=== PATIENT | female | born 1960 | race Caucasian/White ===

== ENCOUNTER 2017-03-25 12:48 | Inpatient (IN) | payer SELFPAY ==
--- NOTE | ~2017-03-25 | DS ---
Discharge Summary [id number] [place]. [address] NAME: ROSSY JOYA : 58 STATUS : DIS IN PAT#: [id number] AGE: 56 ADM/REG DATE : 03/25/17 MR#: [id number] REPORT SERV DATE: 03/30/17 DICTATED BY: LEENA ANTONIO DATE: 03/27/17 REPORT STATUS : Draft TRANSCRIBED BY: MODL DATE: 03/27/17 ADMISSION DATE: 03/25/2017 DISCHARGE DATE: 03/27/2017 PRINCIPAL DIAGNOSIS: Pneumonia of left lingula. SECONDARY DIAGNOSES: Systemic inflammatory response syndrome, pleurisy, tobacco abuse. HISTORY OF PRESENT ILLNESS: See Dr. Nolasco's dictation on 03/25/2017. HOSPITAL COURSE: The patient admitted with pneumonia and concern for sepsis due to fever and leukocytosis and elevated heart rate. However, elevated heart rate was mostly due to pain. The patient has significant pleuritic pain, but responded substantially to Toradol therapy. Her pneumonia severity index was actually found to be quite low. She responded to antibiotics and was actually able to be converted to oral Levaquin by 03/27/2017 and she was released home. She was on metered dose inhaler p.r.n. Mucinex and Lortab p.r.n. with instructions for ibuprofen as needed as. DICTATED BY: Guevara Cheng/ESTHER Leena Antonio M.D. / [id number] CC: Leena Antonio M.D.
--- NOTE | ~2017-03-25 | HP ---
History And Physical [id number] [place]. [address] NAME: ROSSY JOYA : 58 STATUS : ADM IN [facility]#: [id number] AGE: 56 ADM/REG DATE : 03/25/17 MR#: [id number] REPORT SERV DATE: 03/25/17 DICTATED BY: SULMA NOLASCO DATE: 03/25/17 REPORT STATUS : Draft TRANSCRIBED BY: MODL DATE: 03/25/17 DATE OF ADMISSION: 03/25/2017 CHIEF COMPLAINT: Cough, short of breath, not feeling well, painful chest pain. HISTORY OF PRESENT ILLNESS: Obtained from the patient as well as from the patient's family present at bedside and emergency room documents. Also, prior medical records available to us were thoroughly reviewed. According to the information available, the patient is a pleasant 56-year-old white woman with past medical history significant for prior admission for pneumonia several years ago, still smoking at this moment with no regular prescribed medications at home, presented to the emergency room for severe left-sided pleuritic chest pain as well as cough, shortness of breath, and chills. The patient stated the symptoms started gradually for several days, but worse of a day with significant shortness of breath, pain left-sided, radiating towards the left back across the chest with the chills, feeling feverish, but never documented temperature at home. She has some cough mostly nonproductive, but increasing the amount of pain and overall distress the patient had been experiencing. No URI like symptoms. No recent contact with sick persons. No recent travel outside of the area or contact with persons that travel outside of the area. In the emergency room, the patient was evaluated, was noticed to be in moderate distress due to her presentation of pain. Further investigation revealed left-sided infiltrate and a CTA of the chest confirmed left lingular infiltrate with elevated white cell count 20.2. The patient had met criteria for sepsis/severe sepsis as documented below. Because of the above presentation and findings and results of the initial investigation in the emergency room, the patient was referred to the Hospitalist Service for further management and evaluation. Please note, at this moment despite 2.5 L of IV fluids boluses given the patient still remains borderline hypotensive with the systolic blood pressure from 79 to 90 most of the time. Please note, the patient is not up to date with her pneumonia vaccine and/or influenza vaccine. No rashes. No weight loss or weight gain reported. No urinary symptoms. No palpitations. No edema. No PND or dyspnea on exertion reported. No hemoptysis. No night sweats or night fevers. PAST MEDICAL HISTORY: Significant for COPD/emphysema. Significant for prior episodes of pneumonia over six to seven years ago for which she required also hospitalization. PAST SURGICAL HISTORY: Significant for and appendectomy in 2011, emergent cholecystectomy in 2014. SOCIAL HISTORY: The patient lives with significant other for many years. She started smoking again half a pack of cigarettes daily, having 40-pack year smoking history. Denies significant alcohol abuse. She stated that she drinks beer most of the days. Denies illicit or recreational drug abuse. Unemployed. FAMILY HISTORY: Significant for hypertension and coronary artery disease. REVIEW OF SYSTEMS: Per H and P, otherwise negative in all review of systems. Please note, the comprehensive History And Physical [address] [address] NAME: ROSSY JOYA : 58 STATUS : ADM IN [facility]#: [id number] AGE: 56 ADM/REG DATE : 03/25/17 MR#: [id number] REPORT SERV DATE: 03/25/17 DICTATED BY: SULMA NOLASCO DATE: 03/25/17 REPORT STATUS : Draft TRANSCRIBED BY: ESTHER DATE: 03/25/17 review of system was obtained and pertinent positives were including in the H and P. ALLERGIES: REPORTED TO PENICILLIN AND BENADRYL WELL PSEUDOEPHEDRINE WOULD MAKE HER "JERKY." HOME MEDICATIONS: No regular prescribed home medications. The patient takes over-the- counter Aleve 440 mg p.o. daily for pain, last dose of taking several days ago. PHYSICAL EXAMINATION: GENERAL: Pleasant but pale, ill appearing, in moderate distress due to pain. VITAL SIGNS: Upon arrival to the emergency room, blood pressure 108/66, (note that her blood pressure had remained from 78 systolic up to 95 systolic occasionally up to 100 systolic), pulse 115, respiratory rate 22, temperature 98.4, oxygen saturation 97% in room air. HEENT: With pupils equal, round, and reactive to light. Extraocular movements intact. Throat, mild erythema. No exudate. No signs of tenderness. Atraumatic and normocephalic. NECK: Supple. No JVD. No bruit. No thyromegaly. No lymph nodes. LUNGS: Emphysematous confirmation, few scattered wheezes bilaterally and rhonchi in the left lung field. HEART: Positive S1, S2. Regular rate and rhythm. Tachycardic. Positive mitral regurgitation. Murmur at the apex. PMI not displaced by palpation of the left lateral chest wall. ABDOMEN: Positive bowel sounds. Soft, nontender. No guarding. No hepatosplenomegaly. EXTREMITIES: Decreased range of motion. Osteoarthritic changes. No clubbing. No cyanosis. No edema. No calf tenderness. +2 pulses. NEUROLOGIC: Alert and oriented x3. Grossly nonfocal. Cranial nerves II through XII grossly intact. Motor strength 5/5 symmetrical bilateral. Deep tendon reflexes 2/2 symmetrical bilateral. BACK: With decreased range of motion, but no focal localized tenderness. No CVA tenderness. SKIN: No bruises. No rashes. No lacerations. SIGNIFICANT LABORATORY DATA: Chest x-ray (personal reading) showed chronic interstitial changes, possible left lingular infiltrate. CTA of the chest by preliminary report from the emergency room showed no acute PE with left lingular consolidation. EKG (personal reading) showed sinus tachycardia at 113 beats per minute. No acute ST elevation. Lactate 0.6 which is within normal limits. Influenza screening test negative. Sodium 139, potassium 4.8, chloride 103, bicarb 31, BUN 7, creatinine 0.88, glucose 102, calcium 9.3, magnesium 2.5. Troponin I was 0.02. White cell count 20.2, hemoglobin 13.7, platelet count 334. INR 1.1. ASSESSMENT AND PLAN AND PROBLEM LIST: The patient is a pleasant 56-year-old woman admitted with sepsis/severe sepsis likely due to pneumonia. Impression: History And Physical [address] [address] NAME: ROSSY JOYA : 58 STATUS : ADM IN [facility]#: [id number] AGE: 56 ADM/REG DATE : 03/25/17 MR#: [id number] REPORT SERV DATE: 03/25/17 DICTATED BY: SULMA NOLASCO DATE: 03/25/17 REPORT STATUS : Draft TRANSCRIBED BY: MODL DATE: 03/25/17 1. Sepsis and severe sepsis with pneumonia, with several criteria documented in the chart including tachycardia and tachypnea with increased heart rate and increased respiratory rate, elevated white cell count, very ill appearing, hypotensive. For all the above, the patient has been placed in IMCU, provide adequate IV hydration. Repeat lactate level in 3 hours. Continue to monitor hemodynamically. Provide antibiotic coverage as per pneumonia protocol. Check a procalcitonin level and monitor clinical response to the medical treatment. Low threshold for starting pressors for hemodynamic support. 2. Pulmonary pneumonia. a. Likely bacterial (left lingular). b. Pleuritic chest pain. c. No signs of chronic obstructive pulmonary disease/emphysema. d. Tobacco dependency disorder. For all the above, the patient has been started on antibiotic as per community-acquired pneumonia protocol with IV Rocephin 2 g IV daily and Zithromax 500 mg IV daily. Obtain sputum culture and blood culture, provide symptomatic treatment with Mucinex DM, Flonase nasal spray, oxygen supplementation. Provide adequate pain control. Provide smoking cessation education. Offer nicotine replacement therapy as a nicotine patch 14 mg daily. Consider to repeat chest x-ray, especially if the patient fails to improve as expected. 3. Hypotension, likely part of the presentation of the severe sepsis syndrome. We are going to check a cortisol level in the a.m. Continue adequate IV hydration and hemodynamic support with elevated white cell count, likely infectious. Continue to monitor. Continue antibiotic coverage for all cultures. PROGNOSIS: Moderate for this admission. Discussed with the patient and patient's family present at bedside. Questions were answered in full. Please note, the patient is a full code at this moment as discussed with the patient at bedside. Please note also the written H and P and written orders and instructions. Please note, the patient does not have a primary care provider at this moment. RF/MODL Sulma Nolasco M.D. / [id number]
[2017-03-25 12:44] LABS: BASOPHILS 0.1 %; BASOPHILS ABSOLUTE 0.03 10/3/uL (0.0-0.16); EOSINOPHILS 0.2 %; EOSINOPHILS ABSOLUTE 0.04 10/3/uL (0.0-0.53); HEMATOCRIT 41.6 % (36.0-48.0); HEMOGLOBIN 13.7 g/dL (12.0-16.0); IMMATURE GRANULOCYTES 0.5 %; LYMPHOCYTES 14.8 %; LYMPHOCYTES ABSOLUTE 2.98 10/3/uL (0.67-4.30); MEAN CORPUS HGB CONC 32.9 g/dL (32.0-36.0); MEAN CORPUSCULAR HEMOGLOB 30.2 pg (26.0-34.0); MEAN PLATELET VOLUME 10.6 fL (9.2-13.0); MONOCYTES 9.4 %; MONOCYTES ABSOLUTE 1.89 10/3/uL (0.21-1.20); NEUTROPHILS ABSOLUTE 15.14 10/3/uL (2.02-8.40); PLATELET COUNT 334 10/3/uL (150-400); RBC DISTRIBUTION WIDTH 13.1 % (12.0-16.0); RED CELL COUNT 4.54 10/6/uL (4.0-5.6)
[2017-03-25 12:45] LABS: MANUAL DIFF NO %; MEAN CORPUSCULAR VOLUME 91.6 fL (80-100); WHITE BLOOD CELLS 20.2 10/3/uL (4.5-10.5)
[~2017-03-25 12:48] MED LIST: ADVAIR INH; ALEVE220 MG PO; DENIES HOME MEDS; DENIES MEDS; NORCO1 TA1 PO
[2017-03-25 12:54] LABS: INTERNATIONAL NORMAL RATI 1.1 UNITS (-); PARTIAL THROMBO TIME 31.6 SEC (22.5-37.2); PROTIME (NOT ORD) 14.5 SEC (12.0-14.5)
[2017-03-25 13:04] LABS: BUN (BLOOD UREA NITROGEN) 7 MG/DL (6-23); CALCIUM, SERUM 9.3 MG/DL (8.5-10.4); CHEST PAIN PROFILE TAT 0 Hrs 23 Mins; CHLORIDE, SERUM 103 MMOL/L (96-112); CO2 (CARBON DIOXIDE) 31 MMOL/L (24-34); CREATININE 0.88 MG/DL (0.55-1.02); GFR AFRICAN AMERICAN 85 ML/MIN (>=60); GFR NON AFRICAN AMERICAN 73 ML/MIN (>=60); GLUCOSE, SERUM 102 MG/DL (60-99); POTASSIUM, SERUM 4.8 MMOL/L (3.5-5.3); SODIUM, SERUM 139 MMOL/L (135-148); TROPONIN I <0.02 NG/ML (<0.05)
[2017-03-25 13:05] LABS: INFLUENZA A SCREEN NEGATIVE (NEGATIVE); INFLUENZA B SCREEN NEGATIVE (NEGATIVE)
[2017-03-25] MEDS ORDERED: ALEVE220 MG PO (15:39)
[2017-03-25 16:51] LABS: LACTATE 0.6 MMOL/L (0.3-2.4)
[2017-03-25 23:30] LABS: FREE T4 1.24 NG/DL (0.76-1.46)
[2017-03-25 23:31] LABS: PHOSPHORUS, SERUM 2.3 MG/DL (2.5-4.5)
[2017-03-26 00:02] LABS: PROCALCITONIN <0.05 ng/mL (<0.5)
[2017-03-26 06:07] LABS: BASOPHILS 0.2 %; BASOPHILS ABSOLUTE 0.02 10/3/uL (0.0-0.16); EOSINOPHILS 1.2 %; EOSINOPHILS ABSOLUTE 0.16 10/3/uL (0.0-0.53); IMMATURE GRANULOCYTES 0.4 %; IMMATURE GRANULOCYTES ABSOLUTE 0.05 10/3/uL (0.0-0.11); LYMPHOCYTES 22.1 %; LYMPHOCYTES ABSOLUTE 2.91 10/3/uL (0.67-4.30); MEAN CORPUS HGB CONC 31.9 g/dL (32.0-36.0); MEAN CORPUSCULAR HEMOGLOB 29.3 pg (26.0-34.0); MEAN PLATELET VOLUME 10.8 fL (9.2-13.0); MONOCYTES 8.3 %; MONOCYTES ABSOLUTE 1.09 10/3/uL (0.21-1.20); NEUTROPHILS 67.8 %; NEUTROPHILS ABSOLUTE 8.95 10/3/uL (2.02-8.40); PLATELET COUNT 286 10/3/uL (150-400); RBC DISTRIBUTION WIDTH 13.1 % (12.0-16.0); WHITE BLOOD CELLS 13.2 10/3/uL (4.5-10.5)
[2017-03-26 06:11] LABS: HEMATOCRIT 32.3 % (36.0-48.0); HEMOGLOBIN 10.3 g/dL (12.0-16.0); RED CELL COUNT 3.51 10/6/uL (4.0-5.6)
[2017-03-26 06:13] LABS: MANUAL DIFF NO %
[2017-03-26 06:26] LABS: BUN (BLOOD UREA NITROGEN) 7 MG/DL (6-23); CHLORIDE, SERUM 111 MMOL/L (96-112); CPK (IF ELEVATED MB BANDS) 45 U/L (0-200); CREATININE 0.51 MG/DL (0.55-1.02); GFR AFRICAN AMERICAN 124 ML/MIN (>=60); GFR NON AFRICAN AMERICAN 107 ML/MIN (>=60); GLUCOSE, SERUM 114 MG/DL (60-99); PHOSPHORUS, SERUM 2.5 MG/DL (2.5-4.5); POTASSIUM, SERUM 3.9 MMOL/L (3.5-5.3); SODIUM, SERUM 138 MMOL/L (135-148); TROPONIN I <0.02 NG/ML (<0.05)
[2017-03-26 06:29] LABS: ALBUMIN 2.5 G/DL (3.5-5.0); CALCIUM, SERUM 7.4 MG/DL (8.5-10.4); CO2 (CARBON DIOXIDE) 25 MMOL/L (24-34)
[2017-03-26 08:18] LABS: PROCALCITONIN <0.05 ng/mL (<0.5)
[2017-03-27 05:03] LABS: BASOPHILS 0.2 %; BASOPHILS ABSOLUTE 0.02 10/3/uL (0.0-0.16); EOSINOPHILS ABSOLUTE 0.26 10/3/uL (0.0-0.53); HEMATOCRIT 31.1 % (36.0-48.0); HEMOGLOBIN 10.1 g/dL (12.0-16.0); IMMATURE GRANULOCYTES 0.4 %; IMMATURE GRANULOCYTES ABSOLUTE 0.05 10/3/uL (0.0-0.11); LYMPHOCYTES ABSOLUTE 3.47 10/3/uL (0.67-4.30); MANUAL DIFF NO %; MEAN CORPUS HGB CONC 32.5 g/dL (32.0-36.0); MEAN CORPUSCULAR HEMOGLOB 29.9 pg (26.0-34.0); MEAN PLATELET VOLUME 10.6 fL (9.2-13.0); MONOCYTES 8.5 %; MONOCYTES ABSOLUTE 1.09 10/3/uL (0.21-1.20); NEUTROPHILS 61.9 %; NEUTROPHILS ABSOLUTE 7.97 10/3/uL (2.02-8.40); PLATELET COUNT 280 10/3/uL (150-400); RBC DISTRIBUTION WIDTH 12.9 % (12.0-16.0); RED CELL COUNT 3.38 10/6/uL (4.0-5.6); WHITE BLOOD CELLS 12.9 10/3/uL (4.5-10.5)
[2017-03-27] MEDS ORDERED: MULTI-VIT HP PO (11:57)
[2017-03-27] MEDS ORDERED: NAC600 MG PO (11:58)
[2017-03-27] MEDS ORDERED: HABIT14 TOP (11:58)
[2017-03-27] MEDS ORDERED: LEVAQUIN750 MG PO (11:59)
[2017-03-27] MEDS ORDERED: PROVHFA INH (12:18)
== END 2017-03-27 13:57 | disposition home or self-care (01) | DRG 190 ==
LOC: ER 12:48 → IMCU 19:30 → 4SO 03-26 18:17
PROVIDERS: Hospitalist; Internal Medicine
DX: J44.0 Chronic obstructive pulmonary disease with (acute) lower respiratory infection (principal); J18.9 Pneumonia, unspecified organism; I95.9 Hypotension, unspecified; F17.200 Nicotine dependence, unspecified, uncomplicated; Z87.01 Personal history of pneumonia (recurrent); Z88.0 Allergy status to penicillin; Z88.8 Allergy status to other drugs, medicaments and biological substances
CPT/HCPCS: 71010; 71275; 80048; 80069; 82533; 82550; 83605; 83735; 84100; 84145; 84439; 84443; 84484; 85025; 85610; 85730; 87040; 87641; 87804; 93005; 94640; 96374; 96375; 99291; A9270-GY; J0456; J1885; J2405; Q9967